=== PATIENT | male | born 1955 | race Caucasian/White ===

== ENCOUNTER 2016-12-09 07:13 | Day surgery (SDC) | payer OTHER ==
[2016-12-05 15:56] VITALS: BMI 31.9
[2016-12-09] MEDS ORDERED: LIDOCAINE HCL 1%, 10 MG/ML (20ML VIAL) ONE (08:13)
[2016-12-09] MEDS ORDERED: LIDOCAINE 1%/EPI 1:100000 (50 ML MULTI DOSE VIAL) ONE (08:13)
[2016-12-09] MEDS ORDERED: BACITRACIN 30 GM TUBE TOPICAL OINTMENT ONE (08:14)
[2016-12-09] MEDS ORDERED: BUPIVACAINE HCL/PF 0.5% (5MG/ML) 10 ML VIAL ONE (08:14)
--- NOTE | 2016-12-09 10:10 | HP ---
History & Physical Update - History History: No Change - Physical Physical: No Change - Assessment Assessment: No Change - Plan Plan: No Change
[2016-12-09] MEDS ORDERED: MIDAZOLAM HCL 2 MG/2 ML SINGLE DOSE VIAL ONE ×2 (10:26→11:00)
[2016-12-09] MEDS ORDERED: BUPIVACAINE HCL/PF 0.25% (2.5MG/ML) 10 ML VIAL ONE (10:35)
[2016-12-09] MEDS ORDERED: ceFAZolin SODIUM 1 GM VIAL IVPB ONE (10:38)
[2016-12-09] MEDS ORDERED: BUPIVACAINE HCL/PF 0.25% (2.5MG/ML) 10 ML VIAL IJ ONE ×2 (11:24)
[2016-12-09] MEDS ORDERED: LIDOCAINE 1%/EPI 1:100000 (20 ML MULTI DOSE VIAL) INF ONE ×2 (11:25)
[2016-12-09] MEDS ORDERED: ONDANSETRON 4 MG/2 ML VIAL IVPUSH PRN (11:54)
[2016-12-09] MEDS ORDERED: LACTATED RINGERS SOLUTION 1,000 ML IV SCH (12:00)
[2016-12-09] MEDS ORDERED: KETAMINE HCL 200 MG/20 ML VIAL ONE (12:06)
--- NOTE | 2016-12-09 12:16 | OP ---
Operative Note - Note: Operative Date: 12/09/16 Pre-Operative Diagnosis: left posterior shoulder and right midback masses Operation: Excision of posterior shoulder and midback masses Findings: fibrofatty soft tissue masses Post-Operative Diagnosis: Same as Pre-op Surgeon: Yoseph Brody Anesthesia: Local, MAC Estimated Blood Loss (mls): 5 Operative Report Dictated: Yes
[2016-12-09] MEDS ORDERED: KETOROLAC TROMETHAMINE 30 MG/1 ML VIAL IVPUSH ONE (12:45)
[2016-12-09 13:02] VITALS: TEMP 97.5
[2016-12-09 13:10] VITALS: PULSE 90
[2016-12-09 13:58] VITALS: BP 138/86
--- NOTE | 2016-12-10 14:36 | PATH ---
Surgical Pathology Report Patient Name: MELANY GREEN [facility]. Rec. #: [id number] /Age/Gender: 1955 (Age: 61) / M Account: [id number] Location: [facility] SURGICAL Taken: 12/09/2016 Received: 12/09/2016 Reported: 12/10/2016 Physicians: Yoseph Brody M.D. Specimen(s) Received A: MASS OF LEFT POSTERIOR SHOULDER B: SOFT TISSUE MASS OF RIGHT MID BACK Clinical History Left posterior shoulder mass Right mid back soft tissue mass Final Diagnosis A. SOFT TISSUE, LEFT POSTERIOR SHOULDER, MASS, EXCISION: MATURE BENIGN ADIPOSE TISSUE CONSISTENT WITH LIPOMA. B. SOFT TISSUE, RIGHT MID BACK, MASS, EXCISION: CONSISTENT WITH ANGIOLIPOMA. Electronically Signed Camilo Davis M.D. Gross Description A. Received in formalin labeled "left posterior shoulder mass" is a 13.0 x 12.5 x 3.5 cm aggregate of yellow, lobulated adipose tissue. Sectioning reveals homogeneous yellow, smooth fat. No areas of hemorrhage or necrosis are identified. [employer] sections are submitted in 4 cassettes. B. Received in formalin labeled "right mid back soft tissue mass" is a 3.0 x 2.0 x 0.9 cm aggregate of yellow-red soft tissue fragments. Sectioning reveals yellow, lobulated adipose tissue. The specimen is entirely submitted in 2 cassettes. /12/09/201612/09/2016
--- NOTE | 2016-12-10 16:06 | OP ---
DATE OF OPERATION: 12/09/2016 PROCEDURES: Excision biopsy of left posterior shoulder mass and right mid-back mass. PREOPERATIVE DIAGNOSES: Left posterior shoulder mass. Right mid-back mass. POSTOPERATIVE DIAGNOSES: Left posterior shoulder mass. Right mid-back mass. SURGEON: Yoseph Brody MD ANESTHESIA: Local with sedation. FINDINGS AND PROCEDURE: This is a 61-year-old male who presents with a painful and tender right mid-back mass which is about 3 cm in size, tender to palpation at the level of the 9th rib. The patient also has a long-standing history of a slowly growing lobulated mass of the left posterior shoulder which is about 10 cm in its widest diameter. So, the patient desired removal of the mass to relieve symptoms and also correct the deformity of the left posterior shoulder. Consent was obtained , after discussing the risks, benefits and alternatives for the procedure. The patient was brought to the operating room and placed in prone position. Intravenous sedation was given by the Anesthesia team. The operative sites were prepped and draped in the usual sterile fashion. The left shoulder mass was addressed, first, by injecting local anesthesia using lidocaine 1% with epinephrine and 0.5% Marcaine to the proposed incision site. A 5-cm vertical incision over the mass was made using scalpel blade number 15 with dissection carried down through subcutaneous tissue. Further dissection using Bovie cautery was done to completely excise the fibrofatty mass which was also lobulated containing multiple fibrous loculations. This was taken down using Bovie cautery. The dissection was taken down through the superficial fascia of the posterior shoulder muscle to completely excise the mass. Hemostasis was achieved using Bovie cautery. The wound was closed with interrupted Vicryl 3-0 suture for the dermis and continuous Biosyn 4-0 suture for the subcuticular layer. The wound closure was reinforced with Steri-Strips and covered with pressure dressing. The right mid-back mass was excised in the same manner, by injecting local anesthesia and making a 3-cm skin crease incision over the mass using scalpel blade number 15. Dissection was carried down through the subcutaneous tissue, followed by dissection using Bovie cautery combined with Metzenbaum scissors to completely excise the fibrofatty mass down to the plane just above the periosteum of the rib. After the mass was completely excised, the wound was closed with interrupted Vicryl 3-0 suture for the dermis and continuous Biosyn 4-0 suture for the subcuticular layer. The wound closure was reinforced with Steri-Strips and covered with a sterile dressing. The patient was transferred to the postanesthesia care unit in satisfactory condition. ESTIMATED BLOOD LOSS: About 5 mL. WOUND CLASS: Clean. The patient received 2 g of Ancef, prior to the start of the procedure. Kathy [id number] MTDD
== END 2016-12-09 13:58 | disposition home or self-care (01) ==
LOC: JASU-SURG 07:13
PROVIDERS: ATTEND Surgery
PROC: 0JBF0ZZ Excision of Left Upper Arm Subcutaneous Tissue and Fascia, Open Approach (ICD-10-PCS; 2016-12-09)
PROC: 0JB70ZZ Excision of Back Subcutaneous Tissue and Fascia, Open Approach (ICD-10-PCS; principal; 2016-12-09 09:00)
DX: D21.12 Benign neoplasm of connective and other soft tissue of left upper limb, including shoulder (principal); D21.6 Benign neoplasm of connective and other soft tissue of trunk, unspecified
CPT/HCPCS: 88304-TC; 88305-TC; 94760

== ENCOUNTER 2022-11-11 04:32 | Day surgery (SDC) | payer OTHER ==
[2022-11-03 08:57] VITALS: BMI 30.1
[2022-11-11] MEDS ORDERED: LIDOCAINE HCL 2% (20ML MULTI-DOSE VIAL) ONE (12:38)
[2022-11-11 12:49] VITALS: RESP 18
[2022-11-11 15:22] VITALS: BP 129/79; PULSE 81; TEMP 98
== END 2022-11-11 15:20 | disposition home or self-care (01) ==
LOC: JASU-ENDO 04:32
PROVIDERS: ATTEND Student in an Organized Health Care Education/Training Program
PROC: 0DB78ZX Excision of Stomach, Pylorus, Via Natural or Artificial Opening Endoscopic, Diagnostic (ICD-10-PCS; 2022-11-11)
PROC: 0DB68ZX Excision of Stomach, Via Natural or Artificial Opening Endoscopic, Diagnostic (ICD-10-PCS; 2022-11-11)
PROC: 0DB98ZX Excision of Duodenum, Via Natural or Artificial Opening Endoscopic, Diagnostic (ICD-10-PCS; principal; 2022-11-11 14:00)
DX: K20.90 Esophagitis, unspecified without bleeding (principal); K29.50 Unspecified chronic gastritis without bleeding; K29.80 Duodenitis without bleeding; K31.7 Polyp of stomach and duodenum
CPT/HCPCS: 88305-TC; 88342-TC